=== PATIENT | female | born 1975 | race African-American/Black ===

== ENCOUNTER 2017-11-14 12:43 | Emergency (ER) | payer MEDICAID, OTHER ==
--- NOTE | 2017-11-14 13:44 | ER Document Report ---
HPI - HPI Patient complains to provider of: right arm pain Onset: Other - weeks Onset/Duration: Intermittent, Persistent Pain Level: 4 Context: 42 yo female c/o pain and occasional numbness to right hand, radiates from upper arm and neck. Worse at night. Associated Symptoms: None Exacerbated by: Movement Relieved by: Denies Similar symptoms previously: Yes Recently seen / treated by doctor: No - ROS ROS below otherwise negative: Yes Systems Reviewed and Negative: Yes All other systems reviewed and negative Past Medical History - General Information source: Patient - Social History Smoking Status: Unknown if Ever Smoked Frequency of alcohol use: None Drug Abuse: None Lives with: Family Family History: Reviewed & Not Pertinent - Medical History Medical History: Negative Surgical Hx: Negative Vertical Provider Document - CONSTITUTIONAL Agree With Documented VS: Yes Exam Limitations: No Limitations - HEENT HEENT: Normocephalic - NECK Neck: Supple - RESPIRATORY Respiratory: Breath Sounds Normal, No Respiratory Distress - CARDIOVASCULAR Cardiovascular: Regular Rate, Regular Rhythm - MUSCULOSKELETAL/EXTREMETIES Musculoskeletal/Extremeties: MAEW, FROM, Tender - lateral right upper arm, proximal forearm, and positive tinnels right volar wrist - NEURO Level of Consciousness: Awake Motor/Sensory: No Motor Deficit, No Sensory Deficit - DERM Integumentary: No Rash Course - Re-evaluation Re-evalutation: 11/14/17 14:39 xray negative per rad - Vital Signs Vital signs: Temp Pulse Resp BP Pulse Ox 98.3 F 77 20 122/72 100 11/14/17 13:09 11/14/17 13:09 11/14/17 13:09 11/14/17 13:09 11/14/17 13:09 Discharge - Discharge Clinical Impression: Arm paresthesia, right Condition: Good Disposition: HOME, SELF-CARE Instructions: Acetaminophen, [facility], Numbness or Paresthesia ( [facility]), Steroid Medication Additional Instructions: sling few day no aleve while taking prednisone see your doctor for follow up to er if worse Prescriptions: Prednisone [Deltasone 10 mg Tablet] 10 mg PO ASDIR PRN #21 tablet PRN Reason: Forms: Return to Work Referrals: SEBASTIAN ARMSTRONG MD [NO LOCAL MD] - Follow up as needed
--- NOTE | 2017-11-14 14:22 | RADIOLOGY REPORT (SQ) ---
EXAM DESCRIPTION: HAND RIGHT 3 VIEWS COMPLETED DATE/TIME: 11/14/2017 2:11 pm REASON FOR STUDY: injury COMPARISON: None. EXAM PARAMETERS: NUMBER OF VIEWS: Three views. TECHNIQUE: AP, lateral and oblique radiographic images acquired of the right hand. LIMITATIONS: None. FINDINGS: MINERALIZATION: Normal. BONES: No acute fracture or dislocation. No worrisome bone lesions. JOINTS: No effusions. SOFT TISSUES: No soft tissue swelling. No foreign body. OTHER: No other significant finding. IMPRESSION: NEGATIVE STUDY OF THE RIGHT HAND. NO RADIOGRAPHIC EVIDENCE OF ACUTE INJURY. TECHNICAL DOCUMENTATION: JOB ID: [id number] [employer]- All Rights Reserved Reading location - IP/workstation name: [email or web address]
[2017-11-14 15:14] VITALS: BP 113/82
== END 2017-11-14 15:13 | disposition home or self-care (01) ==
LOC: ER 12:43
DX: R20.2 Paresthesia of skin (principal); M79.601 Pain in right arm; R20.0 Anesthesia of skin; M54.2 Cervicalgia
CPT/HCPCS: 99283

== ENCOUNTER 2018-08-02 14:40 | Emergency (ER) | payer SELFPAY ==
[2018-08-02] MEDS ORDERED: HYDROCODONE/ACETAMINOPHEN 5-325 MG TABLET PO ONE (16:25)
--- NOTE | 2018-08-02 17:16 | RADIOLOGY REPORT (SQ) ---
EXAM DESCRIPTION: WRIST RIGHT 3 VIEWS COMPLETED DATE/TIME: 08/02/2018 4:44 pm REASON FOR STUDY: right wrist pain COMPARISON: None. NUMBER OF VIEWS: Three views. TECHNIQUE: AP, lateral, and oblique radiographic images acquired of the right wrist. LIMITATIONS: None. FINDINGS: MINERALIZATION: Normal. BONES: No acute fracture or dislocation. No worrisome bone lesions. Normal alignment. SOFT TISSUES: No soft tissue swelling. No foreign body. OTHER: No other significant finding. IMPRESSION: NEGATIVE STUDY OF THE RIGHT WRIST. NO RADIOGRAPHIC EVIDENCE OF ACUTE INJURY. TECHNICAL DOCUMENTATION: JOB ID: [id number] [employer]- All Rights Reserved Reading location - IP/workstation name: [email or web address]
--- NOTE | 2018-08-02 17:17 | ER Document Report ---
HPI - HPI Time Seen by Provider: 08/02/18 15:48 Pain Level: 4 Notes: Patient is a 43-year-old female who presents with chief complaint of right wrist pain. Patient reports this is been hurting intermittently over the past year. States she was seen here approximately 1 year ago and diagnosed with tendinitis. Patient states she was placed on prednisone which helped her symptoms significantly. 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 - CONSTITUTIONAL Constitutional: DENIES: Fever, Chills - REPRODUCTIVE Reproductive: DENIES: : - MUSCULOSKELETAL Musculoskeletal: REPORTS: Extremity pain - right wrist and hand Past Medical History - General Information source: Patient - Social History Smoking Status: Current Every Day Smoker Frequency of alcohol use: Occasional Drug Abuse: None Family History: Reviewed & Not Pertinent Patient has suicidal ideation: No Patient has homicidal ideation: No - Medical History Medical History: Negative Renal/ Medical History: Denies: Hx Peritoneal Dialysis Surgical Hx: Negative - Immunizations Immunizations up to date: Yes Vertical Provider Document - CONSTITUTIONAL Notes: PHYSICAL EXAMINATION: GENERAL: Well-appearing, well-nourished and in no acute distress. HEAD: Atraumatic, normocephalic. EYES: Pupils equal round extraocular movements intact, conjunctiva are normal. ENT: Nares patent NECK: Normal range of motion LUNGS: No respiratory distress Musculoskeletal: Normal range of motion, tenderness to palpation to dorsal surface of right wrist, cap refill less than 3 seconds, normal motor and sensation distal to area of concern. NEUROLOGICAL: Normal speech, normal gait. PSYCH: Normal mood, normal affect. SKIN: Warm, Dry, normal turgor, no rashes or lesions noted. - INFECTION CONTROL TRAVEL OUTSIDE OF THE [place] IN LAST 30 DAYS: No Course - Re-evaluation Re-evalutation: X-rays negative for any acute findings. Patient will be placed on prednisone taper pack as she states this helped with her symptoms previously. Patient will also be given a cockup splint. - Vital Signs Vital signs: Temp Pulse Resp BP Pulse Ox 98.2 F 70 16 118/83 100 08/02/18 14:56 08/02/18 14:56 08/02/18 14:56 08/02/18 14:56 08/02/18 14:56 Procedures - Immobilization Right wrist Pre-Proc Neuro Vasc Exam: Normal Immobilizer type: Cock-up Performed by: PCT Post-Proc Neuro Vasc Exam: Normal Alignment checked and good: Yes Discharge - Discharge Clinical Impression: Wrist pain, right Condition: Stable Disposition: HOME, SELF-CARE Additional Instructions: Tendonitis The pain you are having is due to tendonitis -- an inflammation around a muscle tendon. It's usually caused by overuse or repeated minor injuries (strains) of the tendon. Tendonitis can take two to four weeks to heal. In fact, you may actually worsen for a few days despite treatment. Tendonitis is usually treated with rest, local heat, and antiinflammatory medication. Sometimes cold packs are recommended if the tendonitis has just started. If the pain is severe or prolonged, cortisone injections may be required. Call the doctor if pain or swelling become severe, if new discoloration or redness appears, or if numbness is noted. Please take ibuprofen 600 mg every 6 hours. Take the prednisone as prescribed. Follow-up with primary care for further management of your wrist pain. Prescriptions: Prednisone [Deltasone 10 mg Tablet] 10 mg PO ASDIR PRN #21 tablet PRN Reason: Forms: Return to Work Referrals: [facility] [Provider Group] - Follow up as needed
[2018-08-02 18:28] VITALS: BP 129/75
== END 2018-08-02 18:29 | disposition home or self-care (01) ==
LOC: ER 14:40
DX: M25.531 Pain in right wrist (principal); M79.641 Pain in right hand; F17.200 Nicotine dependence, unspecified, uncomplicated
CPT/HCPCS: 99283; 73110; L3908

== ENCOUNTER 2019-08-22 11:33 | Emergency (ER) | payer SELFPAY ==
[2019-08-22] MEDS ORDERED: NORMAL SALINE 1000 ML 1,000 ML IV ONE (12:48)
[2019-08-22] MEDS ORDERED: ONDANSETRON HCL INJ/PF 4 MG/2 ML SDV IV ONE (12:48)
--- NOTE | 2019-08-22 12:50 | ER Document Report ---
ED Medical Screen (RME) - General Chief Complaint: Abdominal Pain Stated Complaint: STOMACH PAIN, VOMITING Time Seen by Provider: 08/22/19 12:42 Mode of Arrival: Ambulatory Information source: Patient Notes: Patient presents with abdominal pain for the past several weeks that worsened over the past week. Patient was seen at [facility] yesterday and diagnosed with a UTI, hernia that may be causing a small bowel obstruction. Patient reports nausea and vomiting x3 episodes today and inability to have bowel movement today. Patient denies any fever. Patient does have a copy of her CT scan r eport with her. I have greeted and performed a rapid initial assessment of this patient. A comprehensive ED assessment and evaluation of the patient, analysis of test results and completion of the medical decision making process will be conducted by additional ED providers. TRAVEL OUTSIDE OF THE [place] IN LAST 30 DAYS: No - Related Data Allergies/Adverse Reactions: coconut Adverse Reaction (Verified 08/22/19 12:37) Past Medical History - Social History Chew tobacco use (# tins/day): No Frequency of alcohol use: None Drug Abuse: None Renal/ Medical History: Denies: Hx Peritoneal Dialysis - Immunizations Immunizations up to date: Yes Physical Exam - Vital signs Vitals: Temp Pulse Resp BP Pulse Ox 97.7 F 57 L 18 110/67 99 08/22/19 12:27 08/22/19 12:08/22/19 12:08/22/19 12:08/22/19 12:27 - Abdominal Tenderness: Tender - Generalized abdomen Course - Vital Signs Vital signs: Temp Pulse Resp BP Pulse Ox 97.7 F 57 L 18 110/67 99 08/22/19 12:27 08/22/19 12:27 08/22/19 12:27 08/22/19 12:27 08/22/19 12:27
[2019-08-22 13:34] LABS: ABSOLUTE EOSINOPHILS # (AUTO) 0.1 10^3/uL (0.0-0.6); ABSOLUTE LYMPHOCYTES (AUTO) 1.1 10^3/uL (0.5-4.7); ABSOLUTE MONOCYTES (AUTO) 0.2 10^3/uL (0.1-1.4); ABSOLUTE NEUT (AUTO) 1.9 10^3/uL (1.7-8.2); BASOPHILS % (AUTO) 0.6 % (0-2); HEMATOCRIT 35.1 % (36.0-47.0); MEAN CORPUSCULAR HEMOGLOBIN 22.5 pg (27.0-33.4); MEAN CORPUSCULAR HGB CONC 31.3 g/dL (32.0-36.0); MEAN CORPUSCULAR VOLUME 72 fl (80-97); MONOCYTES % (AUTO) 4.7 % (3-13); PLATELET COUNT 359 10^3/uL (150-450); RED BLOOD COUNT 4.88 10^6/uL (3.72-5.28); RED CELL DISTRIBUTION WIDTH 17.3 % (11.5-14.0); SEGMENTED NEUTROPHILS % (AUTO) 58.7 % (42-78); TOTAL CELLS COUNTED % (AUTO) 100 %; WHITE BLOOD COUNT 3.2 10^3/uL (4.0-10.5)
[2019-08-22 13:37] LABS: APPEARANCE,URINE SLIGHTLY-CLOUDY; BILIRUBIN,URINE SMALL (NEGATIVE); GLUCOSE, URINE NEGATIVE (NEGATIVE); KETONES,URINE TRACE mg/dL (NEGATIVE); LEUKOCYTE ESTERASE,URINE TRACE (NEGATIVE); NITRITE,URINE NEGATIVE (NEGATIVE); PROTEIN,URINE 100 mg/dL (NEGATIVE); URINE SPECIFIC GRAVITY 1.054
[2019-08-22 13:38] LABS: COLOR,URINE DARK YELLOW
[2019-08-22 13:54] LABS: ALBUMIN 3.6 g/dL (3.5-5.0); ALKALINE PHOSPHATASE 71 U/L (38-126); ANION GAP 7 (5-19); ASPARTATE AMINO TRANSFERASE 26 U/L (14-36); BILIRUBIN,DIRECT 0.3 mg/dL (0.0-0.4); BILIRUBIN,TOTAL 0.4 mg/dL (0.2-1.3); BLOOD UREA NITROGEN 7 mg/dL (7-20); CALCIUM 9.1 mg/dL (8.4-10.2); CARBON DIOXIDE 29 mmol/L (22-30); CHLORIDE 103 mmol/L (98-107); GLUCOSE 94 mg/dL (75-110); POTASSIUM 4.5 mmol/L (3.6-5.0); TOTAL PROTEIN 7.2 g/dL (6.3-8.2)
[2019-08-22] MEDS ORDERED: FENTANYL CITRATE INJ/PF 100 MCG/2 ML AMPUL IV ONE (14:16)
[2019-08-22] MEDS ORDERED: METOCLOPRAMIDE HCL INJ/PF 10 MG/2 ML SDV IV ONE (14:16)
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
[2019-08-22 17:18] VITALS: BP 128/76
== END 2019-08-22 17:17 | disposition home or self-care (01) ==
LOC: ER 11:33
DX: R10.33 Periumbilical pain (principal); R10.819 Abdominal tenderness, unspecified site; E86.0 Dehydration; R11.0 Nausea; R14.3 Flatulence; F17.200 Nicotine dependence, unspecified, uncomplicated
CPT/HCPCS: 36415; 83605; 83690; 84703; 85025; 80053; 81001; 74022; J3010; J2765; J2405; J7030; 96361; 96374; 96375; 99284